=== PATIENT | male | born 1960 | race Caucasian/White ===

== ENCOUNTER → 2017-07-04 | Outpatient (CLI) | payer OTHER | END | disposition home or self-care (01) | LOC: PCVCIMAG 15:13 | DX: Z01.818 Encounter for other preprocedural examination (principal); R06.00 Dyspnea, unspecified; I07.1 Rheumatic tricuspid insufficiency; Z86.711 Personal history of pulmonary embolism | CPT/HCPCS: 93325; 93351 ==